=== PATIENT | female | born 1960 | race Caucasian/White ===

== ENCOUNTER → 2020-02-24 10:20 | Outpatient (CLI) | payer OTHER, SELFPAY ==
[2020-02-24 11:24] LABS: 25-OH Vitamin D, Total 93.1 ng/mL (30-100); T4 (Thyroxine) 1.9 ug/dl (5.53-11.0)
[2020-02-24 11:48] LABS: Coronavirus 19 IgG Antibody Negative (Negative); Coronavirus 19 IgM Antibody Negative (Negative)
[2020-02-25 10:08] LABS: Triiodothyronine (T3) Total 446 ng/dL (71-180)
== END ==
PROVIDERS: Visit Provider Nurse Practitioner Family
DX: Z01.84 Encounter for antibody response examination (principal); E55.9 Vitamin D deficiency, unspecified; R73.9 Hyperglycemia, unspecified
CPT/HCPCS: 82306; 83036; 84436; 84480; 86328

== ENCOUNTER → 2020-04-27 10:16 | Outpatient (CLI) | payer OTHER, SELFPAY ==
[2020-04-27 10:57] LABS: Coronavirus 19 IgG Antibody Negative (Negative); Coronavirus 19 IgM Antibody Negative (Negative)
== END ==
PROVIDERS: Visit Provider Nurse Practitioner Family
DX: Z03.818 Encounter for observation for suspected exposure to other biological agents ruled out (principal)
CPT/HCPCS: 36415; 86328

== ENCOUNTER → 2020-05-11 08:35 | Outpatient (CLI) | payer OTHER, SELFPAY ==
[2020-05-11 10:28] LABS: Coronavirus 19 IgG Antibody Negative (Negative); Coronavirus 19 IgM Antibody Negative (Negative)
== END ==
PROVIDERS: Visit Provider Specialist
DX: Z03.818 Encounter for observation for suspected exposure to other biological agents ruled out (principal)
CPT/HCPCS: 36415; 86328

== ENCOUNTER → 2020-05-25 15:38 | Outpatient (CLI) | payer OTHER, SELFPAY ==
--- NOTE | 2020-05-25 15:39 | MR_ITS ---
PROCEDURE: MR CERVICAL SPINE WO CON CLINICAL INDICATION: cervical radiculopathy Left arm pain and numbness in 1st 2nd and 3rd digit COMPARISON: No exams were available for comparison TECHNIQUE: Standard multiplanar multiecho sequences are performed without contrast. 3-D MIP and myelographic images are also rendered and reviewed FINDINGS: There is normal alignment. Craniocervical junction has an unremarkable appearance. Spinal cord has unremarkable signal intensity C2-C3: Unremarkable. C3-C4: Minimal prominence of the posterior longitudinal ligament. There is narrowing of the canal at 10 mm without impingement. C4-C5: There is slight decrease in the disc space. There is narrowing of the canal at 9 mm with mild right and [id number] left foraminal narrowing from mild uncovertebral hypertrophy. C5-C6: Degenerative disc disease with bulging disc. There is mild retrolisthesis of C5 of 2 mm. There is a small to medium-sized left paracentral and foraminal disc osteophyte complex. This is causing moderate to severe left lateral recess narrowing and severe left-sided foraminal narrowing. There is canal stenosis at this level with the canal measuring approximately 7 mm. There is impingement upon the anterior and left aspect of the cord with flattening of the cord anteriorly and on the left. C6-C7 and C7-T1 have an unremarkable appearance. There is slight reversal of the cervical lordosis which may be due to patient positioning or muscle spasm. IMPRESSION: 1. At C5-C6 there is degenerative disc disease with retrolisthesis of C5 of 2 mm with a small to medium-sized left paracentral and foraminal disc osteophyte complex causing moderate to severe left lateral recess narrowing and severe left-sided foraminal narrowing with moderate to severe canal stenosis of 7 mm with impingement upon the anterior left aspect of the cord with flattening of the cord anteriorly on the left.. 2. Canal stenosis at C3-C4 and C4-C5 with foraminal narrowing bilaterally at C4-C5 left greater than right. 3. No extruded herniated disc evident. 4. Reversal of cervical lordosis which may be due to patient positioning or muscle spasm Dictated by: Leandro Nunez MD 05/25/2020 17:10 Leandro Nunez MD in [facility] 05/25/2020 17:10
== END ==
PROVIDERS: Visit Provider Nurse Practitioner Family
DX: M54.12 Radiculopathy, cervical region (principal); M54.2 Cervicalgia
CPT/HCPCS: 72141; 76376

== ENCOUNTER 2020-06-02 09:28 | Day surgery (SDC) | payer OTHER, SELFPAY ==
[2020-06-02 09:39] VITALS: BP 152/84; PULSE 63; RESP 18; TEMP 36.4; O2SAT 98; BMI 28.1
[2020-06-02 10:34] VITALS: BP 140/74; PULSE 74; RESP 18
[2020-06-02 10:36] VITALS: BP 142/78; PULSE 88; RESP 18; O2SAT 98
--- NOTE | 2020-06-02 10:41 | [facility].PMPROC ---
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 She has developed significant left-sided radicular symptoms in the C5-C6 distribution. She does have a disc osteophyte complex and bulging disc at C5-C6 with significant neuroforaminal narrowing on this side. We will do a cervical epidural steroid injection today to help her with her pain symptoms. She has all failed all conservative therapy including anti-inflammatories and physical therapy. Procedure Details:: Cervical epidural steroid injection under fluoroscopy Informed consent was obtained and the risks and benefits of the procedure was explained to the patient. The patient was taken to the procedure room placed prone on the procedure table. The neck was prepped using ChloraPrep. The skin and subcutaneous tissues were anesthetized using lidocaine. I placed a 18-gauge epidural needle into the C5-C6 interspace and advanced using [id number] to air and fluoroscopic guidance. After confirmation of needle placement in the epidural space with dye, I injected 3 mL's lidocaine 1.5% and Depo-Medrol 80 mg. The patient tolerated the procedure well with no complications. Plan and Disposition:: We will follow-up with her in 2 weeks. Will reevaluate symptoms at that time. We will plan on doing a repeat cervical epidural steroid injection if needed.
[2020-06-02 10:49] VITALS: BP 136/75; PULSE 65; RESP 18; O2SAT 98
== END 2020-06-02 10:50 | disposition home or self-care (01) ==
LOC: SC.PAINP 09:29
PROVIDERS: PCP Internal Medicine; Visit Provider Anesthesiology
DX: M50.10 Cervical disc disorder with radiculopathy, unspecified cervical region (principal); Z87.39 Personal history of other diseases of the musculoskeletal system and connective tissue; Z82.49 Family history of ischemic heart disease and other diseases of the circulatory system; Z88.2 Allergy status to sulfonamides; Z91.040 Latex allergy status; Z79.899 Other long term (current) drug therapy
CPT/HCPCS: 62321; J1040; Q9966

== ENCOUNTER 2020-07-03 16:30 | Outpatient (RCR) | payer OTHER, SELFPAY ==
--- NOTE | 2020-06-26 17:03 | [facility].PTOPEV ---
PT Outpatient Evaluation Rehab PT Outpatient Evaluation Start: 06/26/20 16:05 Freq: Status: Active Protocol: Document 06/26/20 16:06 LOLIASHLEY (Rec: 06/26/20 17:02 JANNA [id number]) Electronically Signed By Juancho Sidhu PT 06/26/20 16:06 Outpatient Therapy Subjective History Subjective History This is the initial Physical Therapy evalaution for Nan Hutchinson. Pt is a 60 y/o female referred to PT for c/o LUE and periscap pain and paresthesia . Pt reports ~ 6 months ago she began having periscap and L sided neck pain. Pt reports pain became worse and worse and eventually she had epidural steoid injxn from pain management. Pt reports this decreased pain significantly, but she still has minimal 1-2/10 pain in L scapula and L cervical area. Pt also reports she has paresthesia in the LUE from shoulder into thumb and first finger. Pt reports that she notices certain movements and positions can increase or decrease S&S. Chief Complaint Pain,Paresthesia,Weakness Symptom Type Ache,Dull,Numbness,Tingling Symptoms Relieved By Rest/Positioning,Heat Symptoms Aggravated By Bending/Stooping,Twisting Prior Functional Limitations None Current Functional Limitations Lifting,Housework,Desk Work/ Reading,Recreation Activity Symptom Description Intermittent Level of pain today (0-10) 2 Pain scale - at its best (0-10) 0 Pain scale - at its worst (0-10) 7 Cervical Eval Palpation Cervical Muscles R Cervical Paraspinal,L Cervical Paraspinal,R CT Junction,L CT Junction,R Upper Trapezius,L Upper Trapezius Cervical/Thoracic Palpation Findings Tenderness,Trigger Point, Muscle Guarding AROM Cervical Spine Extension Active Range of 25 Motion (degrees) Cervical Spine Flexion Active Range of 45 Motion (degrees) Cervical Spine Right Lateral Flexion 25 Active Range of Motion (degrees) Cervical Spine Left Lateral Flexion 25 Active Range of Motion (degrees) Cervical Spine Right Rotation Active 70 Range of Motion (degrees)
== END 2020-07-03 16:35 | disposition home or self-care (01) ==
LOC: PT 16:30
PROVIDERS: Visit Provider Nurse Practitioner Family
DX: M54.12 Radiculopathy, cervical region (principal); M48.02 Spinal stenosis, cervical region
CPT/HCPCS: 97010; 97012; 97014; 97110; 97163; G0283

== ENCOUNTER → 2020-09-06 07:31 | Outpatient (CLI) | payer OTHER, SELFPAY ==
[2020-09-06 08:20] LABS: Coronavirus 19 IgG Antibody Positive (Negative); Coronavirus 19 IgM Antibody Negative (Negative)
== END ==
PROVIDERS: Visit Provider Nurse Practitioner Family
DX: Z20.822 Contact with and (suspected) exposure to COVID-19 (principal)
CPT/HCPCS: 36415; 86328

== ENCOUNTER → 2020-09-15 13:40 | Outpatient (CLI) | payer OTHER, SELFPAY ==
[2020-09-15 13:55] LABS: Basophils % 0.6 % (0.1-2.0); Eosinophils # 0.1 K/mm3 (0.0-0.4); Eosinophils % 1.8 % (0.1-12.0); Hematocrit 40.7 % (37.0-47.0); Hemoglobin 12.6 g/dL (12.2-16.2); Lymphocytes # 1.9 K/mm3 (0.7-4.5); Lymphocytes % 29.7 % (10-50); Mean Corpuscular HGB Conc 30.9 g/dL (31.8-35.4); Mean Corpuscular Hemoglobin 29.5 pg (27.0-31.2); Mean Corpuscular Volume 95.6 fl (81-99); Mean Platelet Volume 8.3 fl (7.4-10.4); Monocytes # 0.3 K/mm3 (0.1-1.0); Neutrophils # 4.1 K/mm3 (1.8-7.8); Neutrophils % 63.9 % (37.0-80.0); Platelet Count 328 K/mm3 (142-424); Red Blood Count 4.26 M/mm3 (4.20-5.40); White Blood Count 6.5 K/mm3 (4.8-10.8)
[2020-09-15 14:02] LABS: Alanine Aminotransferase 35 U/L (12-78); Albumin Level 4.4 g/dl (3.5-5.0); Albumin/Globulin Ratio 1.7 (1.1-1.8); Alkaline Phosphatase 80 U/L (38-126); Anion Gap 10.7 mEq/L (5-15); Aspartate Amino Transferase 34 U/L (14-36); Bilirubin,Total 0.2 mg/dl (0.2-1.3); Blood Urea Nitrogen 19 mg/dl (7-17); Calcium 9.8 mg/dl (8.4-10.2); Carbon Dioxide 33 mmol/L (22.0-30.0); Chloride 103 mmol/L (98-107); Chol/HDL Ratio 4.3 (1-3.5); Cholesterol 211 mg/dl (140-200); Estimated Glomerular Filt Rate 73 ml/min (>60); GFR (African American) 89 ML/MIN (>60); Globulin 2.6 g/dL (1.3-3.2); Glucose 101 mg/dl (74-100); HDL Cholesterol 49 mg/dl (40-60); Potassium 3.7 mmoL/L (3.5-5.1); Sodium 143 mmol/L (136-145); Triglycerides 116 mg/dl (30-150); VLDL Cholesterol 23 mg/dL (0-40)
[2020-09-15 14:13] LABS: Direct LDL Cholesterol 121.93 mg/dL (100-129)
[2020-09-15 14:22] LABS: T4 (Thyroxine) 8.9 ug/dl (5.53-11.0)
[2020-09-15 14:29] LABS: Hemoglobin A1C 5.6 % (4.0-6.0)
[2020-09-15 14:36] LABS: Thyroid Stimulating Hormone 2.25 uIU/mL (0.465-4.68)
[2020-09-17 17:26] LABS: Triiodothyronine (T3) Total 103 ng/dL (71-180)
== END ==
PROVIDERS: Nurse Practitioner Family; Visit Provider Emergency Medicine
DX: Z00.00 Encounter for general adult medical examination without abnormal findings (principal)
CPT/HCPCS: 80053; 80061; 83036; 84436; 84443; 84480; 85025

== ENCOUNTER 2023-07-18 14:55 | Outpatient (CLI) | payer OTHER, SELFPAY ==
[2023-07-18 14:27] LABS: Basophils % 0.9 % (0.1-2.0); Eosinophils # 0.1 K/mm3 (0.0-0.4); Eosinophils % 1.4 % (0.1-12.0); Hematocrit 32.3 % (37.0-47.0); Hemoglobin 10.1 g/dL (12.2-16.2); Lymphocytes # 1.4 K/mm3 (0.7-4.5); Lymphocytes % 30.7 % (10-50); Mean Corpuscular HGB Conc 31.4 g/dL (31.8-35.4); Mean Corpuscular Hemoglobin 23.5 pg (27.0-31.2); Mean Corpuscular Volume 74.8 fl (81-99); Mean Platelet Volume 9.1 fl (7.4-10.4); Monocytes # 0.2 K/mm3 (0.1-1.0); Monocytes % 4.4 % (1.7-9.3); Neutrophils # 2.8 K/mm3 (1.8-7.8); Neutrophils % 62.7 % (37.0-80.0); Platelet Count 488 K/mm3 (142-424); Red Blood Count 4.31 M/mm3 (4.20-5.40); Red Cell Distribution Width 17.1 % (11.5-17.5); White Blood Count 4.5 K/mm3 (4.8-10.8)
[2023-07-18 14:57] LABS: Alanine Aminotransferase 18 U/L (12-78); Albumin Level 4.2 g/dl (3.5-5.0); Albumin/Globulin Ratio 1.6 (1.1-1.8); Alkaline Phosphatase 74 U/L (38-126); Anion Gap 11.4 mEq/L (5-15); Aspartate Amino Transferase 26 U/L (14-36); Bilirubin,Total 0.3 mg/dl (0.2-1.3); Blood Urea Nitrogen 16 mg/dl (7-17); Calcium 9.3 mg/dl (8.4-10.2); Carbon Dioxide 28 mmol/L (22.0-30.0); Chloride 105 mmol/L (98-107); Chol/HDL Ratio 3.9 (1-3.5); Cholesterol 188 mg/dl (140-200); Estimated Glomerular Filt Rate 72 ml/min (>60); GFR (African American) 88 ML/MIN (>60); Globulin 2.6 g/dL (1.3-3.2); Glucose 84 mg/dl (74-100); HDL Cholesterol 48 mg/dl (40-60); Potassium 4.4 mmoL/L (3.5-5.1); Sodium 140 mmol/L (136-145); Total Protein,Serum 6.8 g/dl (6.3-8.2); Triglycerides 68 mg/dl (30-150); Uric Acid 4.4 mg/dl (2.5-6.2); VLDL Cholesterol 14 mg/dL (0-40)
[2023-07-18 15:08] LABS: Direct LDL Cholesterol 102.62 mg/dL (100-129)
[2023-07-18 15:12] LABS: Free T4 (Free Thyroxine) 1.02 ng/dl (0.78-2.19)
[2023-07-18 15:15] LABS: 25-OH Vitamin D, Total 38.9 ng/mL (30-100)
[2023-07-18 15:24] LABS: Hemoglobin A1C 5.7 % (4.0-6.0)
[2023-07-18 15:31] LABS: Thyroid Stimulating Hormone 2.13 uIU/mL (0.465-4.68)
[2023-07-21 12:30] LABS: Anti-Centromere B Antibodies <0.2 AI (0.0-0.9); Anti-DNA (DS) Ab Qn <1 IU/mL (0-9); Anti-Jo-1 <0.2 AI (0.0-0.9); Anti-Smith Antibody <0.2 AI (0.0-0.9); Antichromatin Antibodies <0.2 AI (0.0-0.9); Antiscleroderma-70 Antibodies <0.2 AI (0.0-0.9); RNP Antibodies 1.3 AI (0.0-0.9); Sjogren's Anti-SS-A <0.2 AI (0.0-0.9); Sjogren's Anti-SS-B 0.7 AI (0.0-0.9)
[2023-07-22 10:31] LABS: Iron 24 ug/dL (37-170)
[2023-07-22 10:47] LABS: Total Iron Binding Capacity 482 ug/dL (265-497)
[2023-07-22 11:12] LABS: Ferritin 4.41 ng/ml (11.1-264)
== END 2023-07-18 23:59 ==
LOC: LAB.DROPOF 14:55
PROVIDERS: PCP Internal Medicine; Visit Provider Internal Medicine
DX: M13.0 Polyarthritis, unspecified (principal); E79.0 Hyperuricemia without signs of inflammatory arthritis and tophaceous disease; D64.9 Anemia, unspecified; Z13.21 Encounter for screening for nutritional disorder; D50.9 Iron deficiency anemia, unspecified; Z13.29 Encounter for screening for other suspected endocrine disorder; Z13.220 Encounter for screening for lipoid disorders; Z13.1 Encounter for screening for diabetes mellitus; Z79.899 Other long term (current) drug therapy; Z79.85 Long-term (current) use of injectable non-insulin antidiabetic drugs
CPT/HCPCS: 80053; 80061; 82306; 82728; 83036; 83540; 83550; 84439; 84443; 84550; 85025; 86225; 86235